=== PATIENT | male | born 1975 | race Caucasian/White ===

== ENCOUNTER 2025-09-06 02:42 | Emergency (ER) | payer OTHER, SELFPAY ==
[2025-09-06 02:43] VITALS: BMI 40.8
[2025-09-06 02:50] VITALS: BP 126/84; BP 155/88; PULSE 104; RESP 22; TEMP 37.3; O2SAT 97
--- NOTE | 2025-09-06 02:57 | XR_ITS ---
Examination: CT abdomen and pelvis without contrast. Coronal 3-D reconstructions. Sagittal 2-D reconstructions. Date and time of exam: September 06, 2025, 0358 hours, comparison April 12, 2008 INDICATIONS: Mid back pain radiating to the front of the abdomen down the right side of the abdomen into the right testicle beginning 7 hours ago CTDI: vol (mGy): 15 DLP: (mGycm): 1041 Technique: Axial images of the abdomen have been obtained, 3 mm slice thickness Intravenous contrast material has not been administered. Low dose protocols were performed. One or more of the following dose reduction techniques were used; automated exposure control, adjustment of the mA and/or KV according to patient size, use of iterative reconstruction technique. Findings: Liver is irregular in contour with diffuse fatty infiltration Hepatomegaly 23 cm Splenomegaly 15 cm No gallstones No pancreatic or adrenal mass 4 mm right renal calculus Mild right hydronephrosis, 5 mm proximal right ureteral calculus No pericecal inflammatory change No bowel obstruction No bladder mass or bladder calculi No prostatomegaly Diffuse moderate lumbar degenerative disc disease upper 4 lumbar levels IMPRESSION: Cirrhosis Hepatosplenomegaly 4 mm right renal calculus Mild right hydronephrosis, 5 mm proximal right ureteral calculus
--- NOTE | 2025-09-06 02:58 | EDRME_ITS ---
Rapid Medical Screening Exam [facility] Arrival date/time: 09/06/25 02:42 50M with history of DM presents to ED with several hours of sudden R flank pain that radiates to testicles, as well as N/V. No gross dysuria/hematuria. Chief Complaint: Abdominal Pain Vital signs: Vital Signs Temperature 99.2 F 09/06/25 02:50 Pulse Rate 104 H 09/06/25 02:50 Respiratory Rate 22 H 09/06/25 02:50 Blood Pressure 155/88 H 09/06/25 02:50 Pulse Oximetry (%) 97 09/06/25 02:50 Oxygen Delivery Method Room Air 09/06/25 02:50
[2025-09-06] MEDS: ONDANSETRON ODT 4 MG TABRAP PO (03:18)
[2025-09-06] MEDS: KETOROLAC INJ 60 MG/2 ML VIAL IM (03:19)
[2025-09-06 03:33] LABS: Basophils # (Auto) 0.0 Thou/mm3 (0.0-0.2); Basophils % (Auto) 0 % (0-2.5); Collection Type, Urine Clean Catch; Eosinophils # (Auto) 0.4 Thou/mm3 (0.0-0.5); Eosinophils % (Auto) 4 % (0-10); Hematocrit 48.4 % (41.0-53.0); Hemoglobin 15.9 g/dL (13.5-16.0); Immature Granulocytes Auto 0.03 Thou/mm3 (0.00-0.00); Lymphocytes # (Auto) 1.4 Thou/mm3 (1.0-4.8); Lymphocytes % (Auto) 13 % (10-50); Mean Corpuscular HGB Conc 32.9 g/dl (31.0-37.0); Mean Corpuscular Hemoglobin 27.9 pg (25.0-35.0); Mean Corpuscular Volume 85 fL (80-100); Monocytes # (Auto) 1.0 Thou/mm3 (0.0-0.8); Monocytes % (Auto) 9 % (0-12); Neutrophils # (Auto) 8.0 Thou/mm3 (1.8-7.7); Neutrophils % (Auto) 74 % (37-80); Nucleated Red Blood Cell # 0.00 Thou/mm3 (0.00-0.00); Nucleated Red Blood Cell % 0 /100 WBC (0); Platelet Count 187 Thou/mm3 (140-440); RDW Standard Deviation 41.8 fL (35.1-43.9); Red Blood Count 5.69 Miln/mm3 (4.50-5.90); Squamous Epithelial Cell,Urine 0 /hpf (0-5); WBC,Urine 0 /hpf (0-5); White Blood Count 10.8 Thou/mm3 (3.8-10.6)
[2025-09-06 03:35] LABS: Lactate (Lactic Acid) 1.9 mMol/L (0.4-2.0)
[2025-09-06 03:48] LABS: Amorphous Crystals,Urine Present (Absent); Bilirubin,Urine Negative (Negative); Blood,Urine Negative (Negative); Clarity,Urine Clear (Clear/Hazy); Color,Urine Lt-Yellow (Lt Yel-Yel); Culture Indicated,Urine Not Indicated; Glucose, Urine 4+ (Negative); Ketones,Urine Negative (Negative); Leukocyte Esterase,Urine Negative (Negative); Nitrite,Urine Negative (Negative); PH,Urine 6.0 (5.0-7.0); Protein,Urine Negative (Neg - Trace); RBC,Urine < 1 /hpf (0-3); Specific Gravity,Urine 1.027 (1.001-1.035); Urobilinogen,Urine Negative mg/dL (0.0-1.0)
[2025-09-06 03:49] LABS: Amphetamine/Methamp Scrn,U Negative (Negative); Barbiturate Screen,Urine Negative (Negative); Benzodiazepines Screen,Urine Negative (Negative); Benzoylecgonine Screen, Ur Negative (Negative); Fentanyl Screen,Urine Negative (Negative); Opiate Screen,Urine Negative (Negative); THC Screen,Urine Negative (Negative)
[2025-09-06 04:11] LABS: Alanine Aminotransferase 35 U/L (10-49); Albumin, Serum 5.0 gm/dL (3.5-5.0); Albumin/Globulin Ratio 2.6 (1.2-2.2); Alcohol, Blood Medical < 3.0 mg/dL (0-10.0); Alkaline Phosphatase 94 U/L (46-116); Anion Gap 13 (7-16); Aspartate Amino Transferase 40 U/L (0-34); BUN/Creatinine Ratio 8 Ratio (12-20); Bilirubin,Total 0.7 mg/dL (0.3-1.2); Blood Urea Nitrogen 15 mg/dL (9-23); Calcium 9.7 mg/dL (8.3-10.6); Calcium (Corrected) 9.7 mg/dL (8.5-10.1); Carbon Dioxide 23.4 mMol/L (20.0-31.0); Chloride 105 mMol/L (98-107); Creatinine (Component) 1.8 mg/dL (0.6-1.3); Estimated Creatinine Clearance 71.5 mL/min (>60); Globulin 1.9 gm/dL (2.3-3.5); Glucose 180 mg/dL (74-106); Lipase 44 U/L (12-53); Osmolality,Calculated 287 (275-295); Potassium 4.2 mMol/L (3.4-5.1); Procalcitonin 0.21 ng/ml (0.0-0.49); Sodium 141 mMol/L (136-145); Total Protein 6.9 gm/dL (5.7-8.2); eGFR 45 See Note
[2025-09-06 06:12] VITALS: BP 111/77; PULSE 87; RESP 19; TEMP 37.1; O2SAT 95
[2025-09-06 07:07] VITALS: BP 115/67; PULSE 85; RESP 17; TEMP 37; O2SAT 96
[2025-09-06] MEDS: TAMSULOSIN HCL 0.4 MG CAPSULE PO (08:11)
[2025-09-06] MEDS: SODIUM CHLORIDE 0.9% 1000 ML 1,000 ML 999 ML IV ×2 (08:16)
[2025-09-06 08:30] VITALS: BP 127/77; PULSE 75; RESP 16; TEMP 37.1; O2SAT 97
--- NOTE | 2025-09-06 09:30 | EDNOTE_ITS ---
ED Abdominal Pain RME/HPI General Chief Complaint: Abdominal Pain Stated complaint: MID BACK PAIN RADIATES TO FRONT Time seen by provider: 09/06/25 06:06 Arrival date/time: 09/06/25 02:42 RME / HPI RME / HPI narrative: 09/06/25 02:42 50M with history of DM presents to ED with several hours of sudden R flank pain that radiates to testicles, as well as N/V. No gross dysuria/hematuria. 50 yo male patient c/o right sided flank pain radiating to his right abdomen and testicular pain radiating up to his right abdomen. Received toradol on arrival with much relief. Pain currently 1/10. Denies fevers. Did have sweats, n/v with the pain. Denies hematuria, foul smelling urine. DR. SORENSEN MAIN ED EVALUATION: 50-year-old male with a history of diabetes mellitus presents to the Emergency Department for evaluation of sudden right flank pain radiating to the right abdomen and right testicle, which began several hours ago. The pain was initially severe and associated with nausea, vomiting, and diaphoresis, but has improved significantly after receiving Toradol on arrival. He currently rates the pain 1/10. He denies fevers, dysuria, hematuria, or foul-smelling urine. No history of kidney stones or recent trauma. Related Data Previous Rx's ?Medication ?Instructions ?Recorded hydrocodone 5 mg-acetaminophen 325 1 tab PO Q6H PRN pa in #14 tabs 09/06/25 mg tablet tamsulosin 0.4 mg capsule 0.4 mg PO QDAY #14 caps 08/17 01/10 Allergies Allergy/AdvReac Type Severity Reaction Status Date / Time atorvastatin (From Lipitor) Allergy Intermediate SPIKE Verified 03/30/23 11:10 LIVER ENZYMES Review of Systems Review of Systems Systems Reviewed: All systems reviewed, normal except as documented Past Medical History Past Medical History CARDIAC: Positive Cardiac Disorders, Myocardial Infarction, Hypercholesterolemia and Hypertension RESPIRATORY: Positive Respiratory Disorders ENDOCRINE: Positive Endocrine Disorders and Diabetes Mellitus Type 2 Family History FAMILY HISTORY: Positive Family Respiratory Disorders, Family Cardiac Disorders and Family Cancer (Testicular CA, Prostate CA) Surgical History SURGICAL: Positive Angiogram (2004) and Tonsillectomy Social History SMOKING STATUS: Never smoker SUBSTANCE USE: does not use ALCOHOL: Never ED Exam Narrative Physical exam: GENERAL APPEARANCE: alert and oriented x 4, well-developed, well-nourished, no acute distress VITALS: All vitals were reviewed and the pulse ox is 97% on room air, which is normal according to my interpretation. HEENT: Normocephalic, atraumatic; pupils equal, round, reactive to light; EOMI; mucous membranes pink, moist; oropharynx clear NECK: Supple LUNGS: CTABL; no wheezes, no rales, no rhonchi HEART: Regular rate, regular rhythm; normal S1, S2; no murmurs ABDOMEN: non distended; normal BS; soft, no tenderness, no guarding, no rebound; no masses, no organomegaly, no hernia BACK: no CVA tenderness EXTREMITIES: atraumatic; no edema NEUROLOGIC: awake; alert and oriented x4; cranial nerves II-XII grossly intact; no focal sensory or motor deficits PSYCHIATRIC: appropriate mood and affect SKIN: warm, dry, normal color; no rashes Course Quality Measures none Orders Category Date Time Status CT abdomen pelvis wo con Stat Exams 09/06/25 02:57 Completed Alcohol, Blood Medical Stat Lab 09/06/25 03:08 Completed CBC Stat Lab 09/06/25 03:08 Completed CMP [Comprehensive Metabolic Panel] Stat Lab 09/06/25 03:08 Completed Drug Screen,Urine Stat Lab 09/06/25 03:08 Completed Lactate (Lactic Acid) Stat Lab 09/06/25 03:08 Completed Lipase Stat Lab 09/06/25 03:08 Completed Procalcitonin Stat Lab 09/06/25 03:08 Completed Urinalysis, C/S if Indicated Stat Lab 09/06/25 03:08 Completed Ketorolac Inj [Toradol Inj] Med 09/06/25 02:57 Discontinued 60 mg IM X1 ONE Ondansetron Odt [Zofran Odt] Med 09/06/25 02:57 Discontinued 4 mg PO X1 ONE Sodium Chloride 0.9% 1000 ml [Ns] 1,000 ml Med 09/06/25 07:29 Discontinued IV 999 mls/hr Sodium Chloride 0.9% 1000 ml [Ns] 1,000 ml Med 09/06/25 07:29 Discontinued IV 999 mls/hr Tamsulosin HCl [Flomax] Med 09/06/25 07:29 Discontinued 0.4 mg PO X1 ONE Vital Signs Vital signs: Vital Signs Temperature 99.2 F 09/06/25 02:50 Pulse Rate 104 H 09/06/25 02:50 Respiratory Rate 22 H 09/06/25 02:50 Blood Pressure 155/88 H 09/06/25 02:50 Pulse Oximetry (%) 97 09/06/25 02:50 Oxygen Delivery Method Room Air 09/06/25 02:50 Abdominal Pain MDM Patient data External records reviewed:: [facility] previous records Clinical information provided by:: patient Social determinants that could affect healthcare access:: none Patient has the following chronic illnesses:: Diabetes How is presenting disease/condition affected by chronic disease/condition?: exa cerbated by Evaluation data The following diagnostics were reviewed and interpreted by me:: lab results and radiology exam(s) Lab and/or radiology exams considered but not ordered:: none Interpretation Summary: Procedure(s): CT abdomen pelvis wo con Accession Number(s): [id number] cc: Arturo Cheema MD; William Conley PA-C~ Examination: CT abdomen and pelvis without contrast. Coronal 3-D reconstructions. Sagittal 2-D reconstructions. Date and time of exam: September 06, 2025, 0358 hours, comparison April 12, 2008 INDICATIONS: Mid back pain radiating to the front of the abdomen down the right side of the abdomen into the right testicle beginning 7 hours ago CTDI: vol (mGy): 15 DLP: (mGycm): 1041 Technique: Axial images of the abdomen have been obtained, 3 mm slice thickness Intravenous contrast material has not been administered. Low dose protocols were performed. One or more of the following dose reduction techniques were used; automated exposure control, adjustment of the mA and/or KV according to patient size, use of iterative reconstruction technique. Findings: Liver is irregular in contour with diffuse fatty infiltration Hepatomegaly 23 cm Splenomegaly 15 cm No gallstones No pancreatic or adrenal mass 4 mm right renal calculus Mild right hydronephrosis, 5 mm proximal right ureteral calculus No pericecal inflammatory change No bowel obstruction No bladder mass or bladder calculi No prostatomegaly Diffuse moderate lumbar degenerative disc disease upper 4 lumbar levels IMPRESSION: Cirrhosis Hepatosplenomegaly 4 mm right renal calculus Mild right hydronephrosis, 5 mm proximal right ureteral calculus Dictated By: Arturo Cheema MD Medications / Prescriptions Medications or Prescriptions considered but not ordered:: none Medication administrations:: Medication Administration History Discontinued Medications Sodium Chloride (Ns) 1,000 mls @ 999 mls/hr IV .Q1H1M ONE Stop: 09/06/25 08:29 Last Infusion: 09/06/25 09:05 Dose: Infused Documented By: Admin: 09/06/25 08:16 Dose: 999 mls/hr Documented By: LEAH Sodium Chloride (Ns) 1,000 mls @ 999 mls/hr IV .Q1H1M ONE Stop: 09/06/25 08:29 Last Infusion: 09/06/25 09:05 Dose: Infused Documented By: Admin: 09/06/25 08:16 Dose: 999 mls/hr Documented By: LEAH Ketorolac Tromethamine (Ketorolac Inj 60 Mg/2 Ml Vial) 60 mg IM X1 ONE Stop: 09/06/25 02:58 Last Admin: 09/06/25 03:19 Dose: 60 mg Documented By: CHRISTIANO Ondansetron HCl (Ondansetron Odt 4 Mg Tabrap) 4 mg PO X1 ONE; Protocol Stop: 09/06/25 02:58 Last Admin: 09/06/25 03:18 Dose: 4 mg Documented By: CHRISTIANO Tamsulosin HCl (Tamsulosin Hcl 0.4 Mg Capsule) 0.4 mg PO X1 ONE Stop: 09/06/25 07:30 Last Admin: 09/06/25 08:11 Dose: 0.4 mg Documented By: LEAH see above Consultations Consultation(s) initiated? (list below): No Diagnosis Differential diagnosis abdominal pain: other (Nephrolithiasis, ureteral colic, and epididymitis.) Most likely diagnosis given after review of the tests above:: Right ureteral stone Chronic kidney disease stage 3 Admission Indicated Admission indicated?: not indicated Admission Request Was there a request for admission?: No Disposition Plan Disposition Plan: Discharge Discharge Attestation Discharge Attestation: The patient and all family members were given an opportunity to ask questions and understood the discharge instructions. Discharge instructions specifically effects, indications for sooner follow up or return to the emergency department, and the expected course of current diagnosis. Patient condition: Stable Discharge Plan Plan Patient Disposition: HOME (Self Care) Prescriptions/Referrals Prescriptions/Med Rec: New tamsulosin 0.4 mg capsule 0.4 mg PO QDAY Qty: 14 0RF hydrocodone-acetaminophen 5-325 mg tablet 1 tab PO Q6H MDD 9 PRN (Reason: pain) Qty: 14 0RF Problem List Clinical Impression: Right ureteral stone, Chronic kidney disease (CKD), stage 3 Patient/Caregiver Discharge Instructions Education Materials: Hypertension and Kidney Disease, ED Kidney Stone w/ Colic Additional Instructions: Follow up with your doctor for monitoring of kidney function Print Language: Telugu Stand Alone Forms: Kelsie Award Info., Patient Portal Info Letter
[2025-09-06 09:47] VITALS: BP 127/81; PULSE 76; RESP 17; TEMP 36.9; O2SAT 97
== END 2025-09-06 09:51 | disposition home or self-care (01) ==
PROVIDERS: Physician Assistant; Emergency Provider Emergency Medicine
DX: N13.2 Hydronephrosis with renal and ureteral calculous obstruction (principal); E11.22 Type 2 diabetes mellitus with diabetic chronic kidney disease; I12.9 Hypertensive chronic kidney disease with stage 1 through stage 4 chronic kidney disease, or unspecified chronic kidney disease; K74.60 Unspecified cirrhosis of liver; N18.30 Chronic kidney disease, stage 3 unspecified; N50.811 Right testicular pain
CPT/HCPCS: 36415; 74176; 80053; 80307; 80320; 81001; 83605; 83690; 84145; 85025; 96360; 96372; 99284; J1885; J7030; Q0162; A9270; G0480

== ENCOUNTER 2025-09-09 07:18 | Emergency (ER) | payer BC, SELFPAY ==
[2025-09-09 07:26] VITALS: BP 160/111; PULSE 89; RESP 18; TEMP 36.6; O2SAT 98; BMI 40.8
--- NOTE | 2025-09-09 07:45 | EDRME_ITS ---
Rapid Medical Screening Exam [facility] Arrival date/time: 09/09/25 07:18 50-year-old male with recent history of kidney stone presents to the Emergency Department for complaints of chest pain shortness of breath and chest pressure. Chief Complaint: Abdominal Pain Vital signs: Vital Signs Temperature 97.8 F 09/09/25 07:26 Pulse Rate 89 09/09/25 07:26 Respiratory Rate 18 09/09/25 07:26 Blood Pressure 160/111 H 09/09/25 07:26 Pulse Oximetry (%) 98 09/09/25 07:26 Oxygen Delivery Method Room Air 09/09/25 07:26 Exam: On exam patient has tenderness of her abdomen and patient appears to have chest pressure Clinical Impression: Initial lab work and imaging obtained
--- NOTE | 2025-09-09 07:45 | EKG_ITS ---
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
--- NOTE | 2025-09-09 07:45 | XR_ITS ---
EXAMINATION: PA lateral chest 2 views TECHNIQUE: Upright PA lateral chest 2 views Date and time: September 09, 2025, 0822 hours INDICATIONS: Shortness of breath beginning 3 days ago. FINDINGS: No significant cardiac enlargement No pneumonia or pulmonary edema. The osseous structures are intact. IMPRESSION: No active disease
[2025-09-09 08:07] LABS: Basophils # (Auto) 0.0 Thou/mm3 (0.0-0.2); Basophils % (Auto) 0 % (0-2.5); Eosinophils # (Auto) 0.1 Thou/mm3 (0.0-0.5); Eosinophils % (Auto) 1 % (0-10); Hematocrit 50.6 % (41.0-53.0); Hemoglobin 16.4 g/dL (13.5-16.0); Immature Granulocytes Auto 0.03 Thou/mm3 (0.00-0.00); Lymphocytes # (Auto) 1.4 Thou/mm3 (1.0-4.8); Lymphocytes % (Auto) 14 % (10-50); Mean Corpuscular HGB Conc 32.4 g/dl (31.0-37.0); Mean Corpuscular Hemoglobin 27.9 pg (25.0-35.0); Mean Corpuscular Volume 86 fL (80-100); Monocytes # (Auto) 0.7 Thou/mm3 (0.0-0.8); Monocytes % (Auto) 7 % (0-12); Neutrophils # (Auto) 7.8 Thou/mm3 (1.8-7.7); Neutrophils % (Auto) 77 % (37-80); Nucleated Red Blood Cell # 0.00 Thou/mm3 (0.00-0.00); Nucleated Red Blood Cell % 0 /100 WBC (0); Platelet Count 189 Thou/mm3 (140-440); RDW Standard Deviation 41.8 fL (35.1-43.9); Red Blood Count 5.87 Miln/mm3 (4.50-5.90); White Blood Count 10.1 Thou/mm3 (3.8-10.6)
[2025-09-09 08:19] LABS: Alanine Aminotransferase 18 U/L (10-49); Albumin, Serum 5.4 gm/dL (3.5-5.0); Albumin/Globulin Ratio 2.5 (1.2-2.2); Alkaline Phosphatase 78 U/L (46-116); Anion Gap 12 (7-16); Aspartate Amino Transferase 19 U/L (0-34); BUN/Creatinine Ratio 9 Ratio (12-20); Bilirubin,Total 1.3 mg/dL (0.3-1.2); Blood Urea Nitrogen 18 mg/dL (9-23); Calcium 10.0 mg/dL (8.3-10.6); Calcium (Corrected) 10.0 mg/dL (8.5-10.1); Carbon Dioxide 25.8 mMol/L (20.0-31.0); Chloride 99 mMol/L (98-107); Creatinine (Component) 2.1 mg/dL (0.6-1.3); Estimated Creatinine Clearance 61.3 mL/min (>60); Globulin 2.2 gm/dL (2.3-3.5); Glucose 158 mg/dL (74-106); Lipase 27 U/L (12-53); Osmolality,Calculated 278 (275-295); Potassium 4.7 mMol/L (3.4-5.1); Sodium 137 mMol/L (136-145); Total Protein 7.6 gm/dL (5.7-8.2); Troponin I < 0.002 ng/mL (0.0-0.045); eGFR 37 See Note
--- NOTE | 2025-09-09 08:25 | PC.NURSE ---
Patient GCS 15 upon assumption of care, when performing assessment patient was asked about abdominal pain, patient became upset and stated for the fifth time, it's not abdominal pain . Patient then grabbed his upper abdomen and stated it feels like pressure on my chest while grabbing his abdomen. Patient is hypertensive on tele, 100% on room air, IV placed, patient at Xray currently, awaiting further orders. Will continue with POC.
--- NOTE | 2025-09-09 08:34 | PD.EDCHEST ---
ED Chest Pain RME/HPI General Chief Complaint: Chest Pain Stated Complaint: RUQ ABD PAIN, CONSTIPATION, CHEST PAIN, SOB Time Seen by Provider: 09/09/25 08:02 Arrival date/time: 09/09/25 07:18 RME / HPI RME / HPI narrative: 09/09/25 07:18 50-year-old male with recent history of kidney stone presents to the Emergency Department for complaints of chest pain shortness of breath and chest pressure. DR. HOOPER MAIN ED EVALUATION: 50-year-old male presents to the Emergency Department for evaluation of chest pressure and shortness of breath that began yesterday and has persisted through today. He describes the chest sensation as pressure or heaviness. He denies fever, chills, cough, palpitations, nausea, or vomiting. He also reports right flank pain rated 7/10, noting a recent history of kidney stones. He has been drinking water, cranberry juice, and apple juice in an attempt to stay hydrated. No recent trauma, hematuria, or dysuria. Related Data Previous Rx's ?Medication ?Instructions ?Recorded hydrocodone 5 mg-acetaminophen 325 1 tab PO Q6H PRN pain #14 tabs 09/06/25 mg tablet tamsulosin 0.4 mg capsule 0.4 mg PO QDAY #14 caps 09/06/25 Allergies Allergy/AdvReac Type Severity Reaction Status Date / Time atorvastatin (From Lipitor) Allergy Intermediate SPIKE Verified 03/30/23 11:10 LIVER ENZYMES Review of Systems Review of Systems Systems Reviewed: All systems reviewed, normal except as documented Past Medical History Past Medical History CARDIAC: Positive Cardiac Disorders, Myocardial Infarction, Hypercholesterolemia and Hypertension ENDOCRINE: Positive Endocrine Disorders and Diabetes Mellitus Type 2 Family History FAMILY HISTORY: Positive Family Respiratory Disorders, Family Cardiac Disorders and Family Cancer (Testicular CA, Prostate CA) Surgical History SURGICAL: Positive Angiogram (2004) and Tonsillectomy Social History SMOKING STATUS: Never smoker SUBSTANCE USE: does not use ALCOHOL: Never ED Exam Narrative Physical exam: GENERAL APPEARANCE: alert and oriented x 4, well-developed, well-nourished, no acute distress VITALS: All vitals were reviewed and the pulse ox is 98% on room air, which is normal according to my interpretation. HEENT: Normocephalic, atraumatic; pupils equal, round, reactive to light; EOMI; mucous membranes pink, moist; oropharynx clear NECK: Supple LUNGS: CTABL; no wheezes, no rales, no rhonchi HEART: Regular rate, regular rhythm; normal S1, S2; no murmurs ABDOMEN: non distended; normal BS; soft, no tenderness, no guarding, no rebound; no masses, no organomegaly, no hernia BACK: no CVA tenderness EXTREMITIES: atraumatic; no edema NEUROLOGIC: awake; alert and oriented x4; cranial nerves II-XII grossly intact; no focal sensory or motor deficits PSYCHIATRIC: appropriate mood and affect SKIN: warm, dry, normal color; no rashes Course Quality Measures none Orders Category Date Time Status EKG (ED ONLY) *Do not use* NOW Care 09/09/25 07:45 Completed EKG (ED Only) Stat Exams 09/09/25 07:45 Draft US renal BI Stat Exams 09/09/25 09:27 Completed XR abdomen flat and uprght Stat Exams 09/09/25 09:55 Completed XR chest 2V Stat Exams 09/09/25 07:45 Completed A1C [Glycohemoglobin w (eAG)] Stat Lab 09/09/25 07:47 Completed CBC Stat Lab 09/09/25 07:47 Completed Comprehensive Metabolic Panel Stat Lab 09/09/25 07:47 Completed Lipase Stat Lab 09/09/25 07:47 Completed Troponin I Stat Lab 09/09/25 07:47 Completed Troponin I Stat Lab 09/09/25 12:14 Completed UA, C/S IF [Urinalysis, C/S if Indicated] Stat Lab 09/09/25 08:51 Completed Magnesium Citrate Liqd [Citrate of Magnesia Liqd] Med 09/09/25 13:00 Discontinued 300 ml PO X1 ONE Morphine* Inj Med 09/09/25 09:22 Discontinued 4 mg IVP X1 ONE Ondansetron Inj [Zofran Inj] Med 09/09/25 09:22 Discontinued 4 mg IVP X1 ONE Sodium Chloride 0.9% 1000 ml [Ns] 1,000 ml Med 09/09/25 09:22 Discontinued IV 999 mls/hr Vital Signs Vital signs: Vital Signs Temperature 97.8 F 09/09/25 07:26 Pulse Rate 89 09/09/25 07:26 Respiratory Rate 18 09/09/25 07:26 Blood Pressure 160/111 H 09/09/25 07:26 Pulse Oximetry (%) 98 09/09/25 07:26 Oxygen Delivery Method Room Air 09/09/25 07:26 Chest Pain MDM Narrative MDM Narrative:: I, Halle Villegas, am scribing for and in the presence of Dr. Hooper. Patient data External records reviewed:: [facility] previous records Clinical information provided by:: patient Social determinants that could affect healthcare access:: none Patient has the following chronic illnesses:: kidney stones How is presenting disease/condition affected by chronic disease/condition?: exacerbated by Evaluation data The following diagnostics were reviewed and interpreted by me:: lab results, radiology exam(s) and EKG tracing(s) (My interpretation: EKG performed at 0821 hours, sinus rhythm, rate 80, no acute ischemic changes) Lab and/or radiology exams considered but not ordered:: none Interpretation Summary: Exam: 2 views chest xray My interpretation: Lungs clear, no consolidation, normal cardiac silhouette, soft tissue normal Overall impression: no acute process. Full Report: Procedure(s): XR chest 2V Accession Number(s): [id number] cc: Jorge SOTO),Joe JAMIL; Buddy GILL),Alona ORNELAS; Arturo Cheema MD~ EXAMINATION: PA lateral chest 2 views TECHNIQUE: Upright PA lateral chest 2 views Date and time: September 09, 2025, 0822 hours INDICATIONS: Shortness of breath beginning 3 days ago. FINDINGS: No significant cardiac enlargement No pneumonia or pulmonary edema. The osseous structures are intact. IMPRESSION: No active disease Dictated By: Arturo Cheema MD Procedure(s): XR abdomen flat and uprght Accession Number(s): [id number] cc: Alona Goodwin PA-C (KHCL); Arturo Cheema MD; Margie Hooper MD~ EXAMINATION: Abdomen 2 views TECHNIQUE: AP upright AP supine abdomen 2 views Date and time: September 09, 2025, 10 0 6:00 a.m. INDICATIONS: Constipation beginning 3 days ago. FINDINGS: Moderate stool throughout the colon. No obstruction. No free air. The osseous fractures are intact. IMPRESSION: Moderate stool throughout the colon No obstruction Dictated By: Arturo Cheema MD Procedure(s): US renal BI Accession Number(s): [id number] cc: Alona Goodwin PA-C (KHCL); Arturo Cheema MD; Margie Hooper MD~ Examination: Retroperitoneal ultrasound, complete Technique: Multiple high resolution grayscale images of the retroperitoneum obtained, including kidneys and bladder. Exam date and time: September 09, 2025, 1015 hours INDICATIONS: 4 mm right renal calculus mild right hydronephrosis right flank pain beginning 4 days ago, FINDINGS: Right kidney 15.1 cm renal cortex 1.9 cm Minimal dilatation of renal calyces Left kidney 13.4 cm renal cortex 2.1 cm Mild bilateral scar formation No bladder mass or bladder calculi Bladder prevoid volume 169 cc Prostate volume 36 cc no prostate nodules IMPRESSION: No significant hydronephrosis No renal calculi noted on this study Dictated By: Arturo Cheema MD Medications / Prescriptions Medications or Prescriptions considered but not ordered:: none Medication administrations:: Medication Administration History Discontinued Medications Sodium Chloride (Ns) 1,000 mls @ 999 mls/hr IV .Q1H1M ONE Stop: 09/09/25 10:22 Last Infusion: 09/09/25 10:52 Dose: Infused Documented By: Admin: 09/09/25 09:51 Dose: 999 mls/hr Documented By: AMBER Magnesium Citrate (Magnesium Citrate 300 Ml Btl) 300 ml PO X1 ONE Stop: 09/09/25 13:01 Morphine Sulfate (Morphine Sulf Inj 4 Mg/Ml Vial) 4 mg IVP X1 ONE Stop: 09/09/25 09:23 Last Admin: 09/09/25 09:48 Dose: 4 mg Documented By: TM Ondansetron HCl (Ondansetron Inj 2 Mg/Ml Inj 2 Ml) 4 mg IVP X1 ONE Stop: 09/09/25 09:23 Last Admin: 09/09/25 09:50 Dose: 4 mg Documented By: AMBER see above Consultations Consultation(s) initiated? (list below): No Diagnosis Chest Pain Differential Diagnosis: other (Acute coronary syndrome, nephrolithiasis, and musculoskeletal chest pain.) Most likely diagnosis given after review of the tests above:: Atypical chest pain Admission Indicated Admission indicated?: not indicated Admission Request Was there a request for admission?: No Disposition Plan Disposition Plan: Discharge Discharge Attestation Discharge Attestation: The patient and all family members were given an opportunity to ask questions and understood the discharge instructions. Discharge instructions specifically effects, indications for sooner follow up or return to the emergency department, and the expected course of current diagnosis. Patient condition: Stable Discharge Plan Plan Patient Disposition: HOME (Self Care) Prescriptions/Referrals Prescriptions/Med Rec: No Action tamsulosin 0.4 mg capsule 0.4 mg PO QDAY Qty: 14 0RF hydrocodone-acetaminophen 5-325 mg tablet 1 tab PO Q6H MDD 9 PRN (Reason: pain) Qty: 14 0RF Problem List Clinical Impression: Atypical chest pain Patient/Caregiver Discharge Instructions Education Materials: ED Chest Pain, Uncertain Cause Print Language: Pakistani Stand Alone Forms: Kelsie Award Info., Patient Portal Info Letter
[2025-09-09 08:57] LABS: Collection Type, Urine Clean Catch; Squamous Epithelial Cell,Urine 0 /hpf (0-5)
[2025-09-09 09:07] LABS: Bacteria,Urine Rare; Bilirubin,Urine Negative (Negative); Blood,Urine 1+ (Negative); Budding Yeast,Urine Present; Clarity,Urine Clear (Clear/Hazy); Color,Urine Lt-Yellow (Lt Yel-Yel); Culture Indicated,Urine Not Indicated; Glucose, Urine 4+ (Negative); Ketones,Urine 1+ (Negative); Leukocyte Esterase,Urine Negative (Negative); Nitrite,Urine Negative (Negative); PH,Urine 6.0 (5.0-7.0); Protein,Urine Negative (Neg - Trace); RBC,Urine 6 /hpf (0-3); Specific Gravity,Urine 1.026 (1.001-1.035); Urobilinogen,Urine Negative mg/dL (0.0-1.0); WBC,Urine < 1 /hpf (0-5)
--- NOTE | 2025-09-09 09:27 | XR_ITS ---
Examination: Retroperitoneal ultrasound, complete Technique: Multiple high resolution grayscale images of the retroperitoneum obtained, including kidneys and bladder. Exam date and time: September 09, 2025, 1015 hours INDICATIONS: 4 mm right renal calculus mild right hydronephrosis right flank pain beginning 4 days ago, FINDINGS: Right kidney 15.1 cm renal cortex 1.9 cm Minimal dilatation of renal calyces Left kidney 13.4 cm renal cortex 2.1 cm Mild bilateral scar formation No bladder mass or bladder calculi Bladder prevoid volume 169 cc Prostate volume 36 cc no prostate nodules IMPRESSION: No significant hydronephrosis No renal calculi noted on this study
[2025-09-09] MEDS: MORPHINE SULF INJ 4 MG/ML VIAL IVP (09:48)
[2025-09-09] MEDS: ONDANSETRON INJ 2 MG/ML INJ 2 ML 4 MG IVP (09:50)
[2025-09-09] MEDS: SODIUM CHLORIDE 0.9% 1000 ML 1,000 ML 999 ML IV (09:51)
[2025-09-09 09:53] LABS: Glucose Estimated Average 154 mg/dL (80-131); Hemoglobin A1C 7.0 % Hgb (4.8-6.0)
--- NOTE | 2025-09-09 09:55 | XR_ITS ---
EXAMINATION: Abdomen 2 views TECHNIQUE: AP upright AP supine abdomen 2 views Date and time: September 09, 2025, 10 0 6:00 a.m. INDICATIONS: Constipation beginning 3 days ago. FINDINGS: Moderate stool throughout the colon. No obstruction. No free air. The osseous fractures are intact. IMPRESSION: Moderate stool throughout the colon No obstruction
[2025-09-09 10:31] VITALS: BP 152/88; PULSE 81; RESP 15; TEMP 36.6; O2SAT 97
[2025-09-09 12:00] VITALS: BP 148/91; PULSE 88; RESP 16; TEMP 36.6; O2SAT 96
[2025-09-09 12:37] LABS: Troponin I < 0.002 ng/mL (0.0-0.045)
[2025-09-09] MEDS: MAGNESIUM CITRATE 300 ML BTL PO (13:38)
[2025-09-09 13:45] VITALS: BP 148/84; PULSE 89; RESP 20; O2SAT 99
== END 2025-09-09 13:48 | disposition home or self-care (01) ==
PROVIDERS: Nurse Practitioner Primary Care; Emergency Provider Emergency Medicine; PCP Physician Assistant
DX: K59.00 Constipation, unspecified (principal)
CPT/HCPCS: 36415; 71046; 74019; 76770; 80053; 81001; 83036; 83690; 84484; 85025; 93005; 96361; 96374; 96375; 99283; J2270; J2405; J7030; A9270

== ENCOUNTER → 2025-09-28 | Outpatient (CLI) | payer BC, SELFPAY ==
--- NOTE | 2025-09-28 11:00 | XR_ITS ---
Examination: CT abdomen and pelvis without contrast. Coronal 3-D reconstructions. Sagittal 2-D reconstructions. Date and time of exam: September 28, 2025, 1101 hours INDICATIONS: Flank pain 2 weeks, history right hydronephrosis 5 mm proximal right ureteral calculus on CT stone study September 06, 2025 CTDI: vol (mGy): 14.6 DLP: (mGycm): 1079 Technique: Axial images of the abdomen have been obtained, 3 mm slice thickness Intravenous contrast material has not been administered. Low dose protocols were performed. One or more of the following dose reduction techniques were used; automated exposure control, adjustment of the mA and/or KV according to patient size, use of iterative reconstruction technique. Findings: Liver is irregular in contour No gallstones Mild splenomegaly No pancreatic or adrenal mass Mild right hydronephrosis, 4 mm distal right ureterovesical junction calculus Normal appendix No bowel obstruction No bladder mass IMPRESSION: Mild right hydronephrosis, 4 mm distal right ureteral vesicle junction calculus
== END | disposition home or self-care (01) ==
LOC: CCTX 10:40
PROVIDERS: PCP Nurse Practitioner Primary Care; Referring Provider Nurse Practitioner Primary Care; Visit Provider Nurse Practitioner Primary Care
DX: N13.30 Unspecified hydronephrosis (principal); N20.1 Calculus of ureter
CPT/HCPCS: 74176